=== PATIENT | female | born 1950 | race Caucasian/White ===

== ENCOUNTER 2020-03-13 06:06 | Day surgery (SDC) | payer MEDICARE ==
[2020-03-09 15:43] VITALS: BMI 32.3
[~2020-03-13 06:06] MED LIST: ALPRAZolam 0.25 MG TAB PO PRN; ALPRAZolam 0.5 MG TAB PO PRN; ASPIRIN 325 MG TAB PO STA; ATORVASTATIN 80 MG TAB PO STA; HEPARIN SODIUM,PORCINE 10,000 UNIT in SODIUM CHLORIDE 0.9% 1,000 ML IRRIGATION PRN; HEPARIN SODIUM,PORCINE 2,500 UNIT in SODIUM CHLORIDE 0.9% 250 ML IRRIGATION PRN; NITROGLYCERIN SL TABS 0.4 MG TAB SUBLINGUAL PRN; SODIUM CHLORIDE 0.9% 1,000 ML in EMPTY BAG 1 BAG IV ONE
[2020-03-13 06:39] LABS: Basophils # (A) 0.1 k/uL (0-0.2); Basophils % (A) 1 %; Eosinophils # (A) 0.5 k/uL (0-0.7); Eosinophils % (A) 4 %; HCT 38.4 % (34.0-46.0); HGB 12.1 gm/dL (11.4-16.0); Hypochromasia Moderate; Lymphocytes # (A) 1.9 k/uL (1.0-4.8); Lymphocytes % (A) 18 %; MCH 26.9 pg (25.0-35.0); MCHC 31.6 g/dL (31.0-37.0); MCV 84.9 fL (80.0-100.0); Mean Platelet Volume 7.2; Monocytes # (A) 0.6 k/uL (0-1.0); Monocytes % (A) 6 %; Neutrophils # (A) 7.3 k/uL (1.3-7.7); Neutrophils % (A) 70 %; Platelet Count 326 k/uL (150-450); RBC 4.52 m/uL (3.80-5.40); RDW 14.6 % (11.5-15.5); WBC 10.5 k/uL (3.8-10.6)
[2020-03-13 06:45] VITALS: TEMP 97.8
[2020-03-13] MEDS ORDERED: fentaNYL (PF) 50 MCG/ML 2 ML AMP ONE (07:15)
[2020-03-13] MEDS: BENZOCAINE SPRAY 1 CAN MUCOUS MEM ONE ×2 (07:25→07:29)
[2020-03-13] MEDS: MIDAZOLAM 2 MG/2 ML VIAL IVP ONE ×2 (07:30→07:32)
[2020-03-13] MEDS: fentaNYL (PF) 50 MCG/ML 2 ML AMP IVP ONE ×2 (07:30→07:32)
[2020-03-13] MEDS ORDERED: MIDAZOLAM 2 MG/2 ML VIAL IVP ONE (07:46)
--- NOTE | 2020-03-13 08:30 | P.TEE ---
Description of Procedure(s): Procedure performed: Transesophageal Echocardiogram with color flow doppler, pulsed wave doppler and continuous wave doppler, moderate conscious sedation Moderate conscious sedation: Moderate conscious sedation was supplied with direct supervision of myself using Versed and Fentanyl. Complications: none Indications: Moderate to severe mitral regurgitation History: Patient is a pleasant 69-year-old female with history of PAD status post lower extremity bypass, persistent atrial fibrillation, hypertension, hyperlipidemia, recent stroke, recent covid 19 infection who presents for EZEKIEL for further workup of mitral regurgitation. Patient did have recent hospitalizations mainly for Covid 19 but also had lower extremity edema and was treated for heart failure as well with outpatient echo showing what appeared to be severe mitral regurgitation, mildly reduced ejection fraction 50-55% and moderate to severe tricuspid regurgitation. Due to concern of severe symptomatic mitral regurgitation, EZEKIEL and possible heart catheterization were recommended. PROCEDURE: After the risks, benefits and alternatives of the above mentioned procedure was explained in detail with the patient, informed consent was obtained. Patient was brought to the lab in a fasting state. Patient was given IV Versed and Fentanyl for sedation. The throat was sprayed with Hurricane to anesthetize the throat. A lubricated Omni probe was then introduced into the esophagus and stomach and multiple views were obtained. 2D echo with color flow doppler, pulsed wave doppler and continuous wave doppler was utilized. Agitated saline bubbles were injected to assess for any intra-atrial shunt. The probe was then removed. Patient tolerated the procedure well. Patient was transferred to the post procedure area in stable and satisfactory condition. FINDINGS: 1. The aortic valve is tricuspid with mild sclerosis. There is no significant aortic stenosis or aortic regurgitation. 2. The mitral valve is moderate to severely calcified, mainly of the posterior leaflet with mild to moderate posterior leaflet tethering. There is moderate central mitral regurgitation. There is only a systolic blunting of the left upper pulmonary vein and right upper pulmonary vein without any systolic flow reversal. The PISA calculated EROA 25mm2 consistent with moderate mitral regurgitation. 3. Tricuspid valve appears to be normal with moderate tricuspid regurgitation. 4. The interatrial septum is intact. No evidence of PFO. 5. Left atrial appendage has a thrombus. 6. Left ventricular size appears to be normal. Ejection fraction is 50-55% without wall motion abnormalities. 7. Left atrium is severely dilated.
[2020-03-13 08:32] VITALS: RESP 16
[2020-03-13 08:36] VITALS: PULSE 65
[2020-03-13 09:13] VITALS: BP 119/56
== END 2020-03-13 09:05 | disposition home or self-care (01) ==
LOC: CATHCVL 06:06
PROVIDERS: ATTEND Internal Medicine
DX: I08.1 Rheumatic disorders of both mitral and tricuspid valves (principal); I48.19 Other persistent atrial fibrillation; I73.9 Peripheral vascular disease, unspecified; I69.354 Hemiplegia and hemiparesis following cerebral infarction affecting left non-dominant side; I11.0 Hypertensive heart disease with heart failure; E78.5 Hyperlipidemia, unspecified; L40.9 Psoriasis, unspecified; I50.32 Chronic diastolic (congestive) heart failure; I77.89 Other specified disorders of arteries and arterioles; R04.0 Epistaxis; Z98.62 Peripheral vascular angioplasty status; Z89.429 Acquired absence of other toe(s), unspecified side; Z87.891 Personal history of nicotine dependence; Z86.16 Personal history of COVID-19; Z79.899 Other long term (current) drug therapy; Z79.01 Long term (current) use of anticoagulants; Z79.82 Long term (current) use of aspirin; Z79.02 Long term (current) use of antithrombotics/antiplatelets; Z82.49 Family history of ischemic heart disease and other diseases of the circulatory system
CPT/HCPCS: 93312; 93320; 93325; 85025; J2250; J3010

== ENCOUNTER → 2020-04-03 | Day surgery (SDC) | payer MEDICARE ==
[2020-03-29 09:07] VITALS: BMI 32.0
[~2020-04-03] MED LIST changes: -ALPRAZolam 0.5 MG TAB PO PRN; +ASPIRIN 325 MG TAB PO PRN; -ASPIRIN 325 MG TAB PO STA; -ATORVASTATIN 80 MG TAB PO STA; -NITROGLYCERIN SL TABS 0.4 MG TAB SUBLINGUAL PRN; +ZOLPIDEM 5 MG TAB PO PRN
[2020-04-03 08:24] VITALS: BP 172/77; PULSE 62; RESP 18; TEMP 97
[2020-04-03 09:07] LABS: Calcium 9.4 mg/dL (8.4-10.2); Potassium 4.4 mmol/L (3.5-5.1)
== END ==
LOC: CATHCVL 07:49
PROVIDERS: ATTEND Internal Medicine
DX: I70.213 Atherosclerosis of native arteries of extremities with intermittent claudication, bilateral legs (principal); Z53.8 Procedure and treatment not carried out for other reasons
CPT/HCPCS: 80048

== ENCOUNTER 2020-04-07 06:10 | Day surgery (SDC) | payer MEDICARE ==
[2020-04-04 09:01] VITALS: BMI 33.6
[~2020-04-07 06:10] MED LIST changes: -ALPRAZolam 0.25 MG TAB PO PRN; -HEPARIN SODIUM,PORCINE 10,000 UNIT in SODIUM CHLORIDE 0.9% 1,000 ML IRRIGATION PRN; -HEPARIN SODIUM,PORCINE 2,500 UNIT in SODIUM CHLORIDE 0.9% 250 ML IRRIGATION PRN; -ZOLPIDEM 5 MG TAB PO PRN
[2020-04-07] MEDS ORDERED: SODIUM CHLORIDE 0.9% 1,000 ML IV ONE (06:30)
[2020-04-07 06:45] VITALS: RESP 18; TEMP 97.6
[2020-04-07] MEDS ORDERED: fentaNYL (PF) 50 MCG/ML 2 ML AMP IVP ONE (07:41)
[2020-04-07] MEDS ORDERED: MIDAZOLAM 2 MG/2 ML VIAL IVP ONE (07:41)
[2020-04-07] MEDS ORDERED: LIDOCAINE 1% INJ 10MG/ML (20 ML MDV) SQ ONE (07:41)
[2020-04-07] MEDS ORDERED: VERAPAMIL SYRINGE (5 MG/10 ML) INTRAARTER ONE ×2 (07:43→08:03)
[2020-04-07] MEDS ORDERED: HEPARIN SODIUM 1,000 UN/ML (10ML VL) IV ONE (08:01)
[2020-04-07] MEDS ORDERED: IOPAMIDOL-370 100ML BTL INJ ONE (08:03)
[2020-04-07] MEDS ORDERED: IOPAMIDOL-250 50ML BTL INTRAARTER ONE (08:03)
[2020-04-07] MEDS ORDERED: RX INFO: IV CONTRAST WAS GIVEN 1 EACH MISC MISCELLANE PRN (08:46)
--- NOTE | 2020-04-07 09:13 | P.PCN ---
Description of Procedure: PROCEDURES PERFORMED: Abdominal angiography with bilateral runoff INDICATION: Bilateral Gary Class 3 claudication, abnormal LE ultrasound HISTORY: Patient is a pleasant 69-year-old female with history of PAD status post reported right bypass and toe amputation, prior tobacco abuse, hypertension, psoriasis rash, mitral regurgitation, recently diagnosed Afib, recently diagnosed CVA with left-sided weakness, left atrial appendage thrombus and prior hospitalizations for heart failure and Covid 19. She has been having left thigh claudication symptoms with walking approximately 100 yards which has been fairly stable over the last few years. She had similar right thigh claudication prior to intervention on her right side for PAD which has completely resolved since that surgery reportedly approximately 2-3 years ago. An ultrasound showed on the right side what appeared to be a common femoral artery stent with only trickle flow however additionally an echo lucency surrounding the right common femoral artery stent and could not exclude a pseudoaneurysm or aneurysm. Remainder of mild to moderate disease on the right. On the left there was elevated velocities of the left common femoral artery greater than 3 m/s along with reported monophasic waveforms of the external iliac artery concerning for more proximal stenosis. Given her life limiting claudication patient desired further workup with an abdominal angiogram and runoff. CONSENT: I have discussed the risks, benefits and alternative therapies for the above-mentioned procedure and for both sedation/analgesia as well as necessary blood product administration, if indicated, as they pertain to this patient. The patient has indicated understanding and acceptance of the risks and procedures discussed. PROCEDURE: After the risks, benefits and alternatives of the above mentioned procedure explained in detail with the patient, informed consent was obtained. Patient was taken to the catheterization lab and prepped and draped in usual fashion. 1% lidocaine was used to anesthetize the right radial area. A 6- Croatian sheath was placed in the right radial artery using modified Seldinger technique. A 6-Croatian pigtail catheter was inserted to the abdominal aorta and DSA imaging was obtained. Due to concern of a more proximal iliac stenosis by ultrasound, dedicated iliac imaging was performed. The 6Fr pigtail catheter was also advanced into the external iliac and pullback was performed with no gradient noted. The catheter was then removed. A TR band was placed and the sheath was removed with hemostasis achieved. Patient tolerated the diagnostic portion well. The patient tolerated the procedure well. Patient was transported back to the post catheterization holding area in stable condition. Conscious Sedation: Patient was monitored under the direct supervision of vision of myself for conscious sedation using Versed and fentanyl for a total duration of 23 minutes Abdominal aorta: The abdominal aorta has mild calcifcation without significant stenosis. There is no dissection or aneurysm. Renal arteries were not imaged. Right lower extremity: Right common iliac artery: No significant stenosis. Right external iliac artery: There is a patent stent without significant stenosis. Right internal iliac artery: Proximal 80% stenosis. Right common femoral artery: There is an aneurysm vs pseudoaneurysm extending from the common femoral into the SFA measuring approximately 2cm. Right profunda: There is no significant stenosis. Right SFA: There are tandem proximal stents which are patent with mild instent stenosis. Right popliteal artery: There is no significant stenosis. Right tibioperoneal trunk: There is no significant stenosis. Right anterior tibial artery: There is no significant stenosis. Right porterior tibial artery: There is no significant stenosis. Right peroneal artery: There is no significant stenosis. Left lower extremity: Left common iliac artery: Mild 30-40% proximal stenosis Left external iliac artery: No significant stenosis. Left internal iliac artery: No significant stenosis. Left common femoral artery: There is a short 100% heavily calcified common femoral artery stenosis, followed by another 90% heavily calcified stenosis. Left profunda: There is no significant stenosis. Left SFA: There is proximal SFA 80% heavily calcified stenosis and a mid to distal tandem 80% stenoses. Left popliteal artery: There is no significant stenosis. Left tibioperoneal trunk: There is no significant stenosis. Left anterior tibial artery: There is no significant stenosis. Left porterior tibial artery: There is no significant stenosis. Left peroneal artery: There is no significant stenosis. FINAL IMPRESSION: 1. Peripheral arterial disease as described above including short segment 100%, 90% heavily calcified left [employer], 80% left SFA. 2. Left anterior thigh claudication 3. 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 PLAN: 1. Aggressive risk factor modification per most recent ACC/AHA guidelines. 2. Given heavily calcified common femoral disease, patient would likely benefit from endarterectomy if intervention considered. Will have patient be evaluated by vascular surgery and will also get their opinion on right common femoral aneurysm vs pseudoaneurysm.
--- NOTE | 2020-04-07 09:47 | IR ---
Fluoroscopy HISTORY: Pain in leg 3.4 minutes fluoroscopy time supplied to the referring clinician. 222 intraoperative C-arm images do cument the procedure. See dictated report from cardiology.
[2020-04-07 12:01] VITALS: BP 124/59; PULSE 61
== END 2020-04-07 11:58 | disposition home or self-care (01) ==
LOC: CATHCVL 06:10
PROVIDERS: ATTEND Internal Medicine
DX: I70.212 Atherosclerosis of native arteries of extremities with intermittent claudication, left leg (principal); I72.4 Aneurysm of artery of lower extremity; Z89.421 Acquired absence of other right toe(s); Z98.890 Other specified postprocedural states; I11.0 Hypertensive heart disease with heart failure; Z86.16 Personal history of COVID-19; I50.9 Heart failure, unspecified; E78.5 Hyperlipidemia, unspecified; I08.1 Rheumatic disorders of both mitral and tricuspid valves; Z87.891 Personal history of nicotine dependence; L40.9 Psoriasis, unspecified; I48.91 Unspecified atrial fibrillation; I69.354 Hemiplegia and hemiparesis following cerebral infarction affecting left non-dominant side; Z82.49 Family history of ischemic heart disease and other diseases of the circulatory system; Z79.01 Long term (current) use of anticoagulants; Z79.899 Other long term (current) drug therapy
CPT/HCPCS: 36246; 75625; 75716; C1769 ×3; C1894; J2250; J2001; J3010; J1644; Q9966; Q9967

== ENCOUNTER → 2020-06-05 | Outpatient (CLI) | payer MEDICARE, OTHER ==
[2020-06-05 11:39] LABS: Basophils % (A) 0 %; Eosinophils # (A) 0.3 k/uL (0-0.7); Eosinophils % (A) 5 %; HCT 35.6 % (34.0-46.0); HGB 11.1 gm/dL (11.4-16.0); Hypochromasia Moderate; Lymphocytes # (A) 1.2 k/uL (1.0-4.8); Lymphocytes % (A) 17 %; MCH 27.1 pg (25.0-35.0); MCHC 31.2 g/dL (31.0-37.0); MCV 86.8 fL (80.0-100.0); Mean Platelet Volume 7.1; Monocytes # (A) 0.4 k/uL (0-1.0); Monocytes % (A) 6 %; Neutrophils # (A) 4.9 k/uL (1.3-7.7); Neutrophils % (A) 71 %; Platelet Count 298 k/uL (150-450); RDW 15.7 % (11.5-15.5)
== END | disposition home or self-care (01) ==
LOC: LABPAT 10:41
PROVIDERS: ATTEND Surgery
DX: I48.91 Unspecified atrial fibrillation (principal); R94.31 Abnormal electrocardiogram [ECG] [EKG]
CPT/HCPCS: 36415; 84132; 85025; 86850; 86900; 86901; 93005

== ENCOUNTER 2020-06-12 08:10 | Day surgery (SDC) | payer MEDICARE, OTHER ==
[2020-06-02 15:30] VITALS: BMI 33.6
[~2020-06-12 08:10] MED LIST changes: -ASPIRIN 325 MG TAB PO PRN; +LIDOCAINE 1% (10MG/ML) FOR IV START INTRADERMA PRN; +MIDAZOLAM 2 MG/2 ML VIAL IV PRN; -SODIUM CHLORIDE 0.9% 1,000 ML in EMPTY BAG 1 BAG IV ONE; +fentaNYL (PF) 50 MCG/ML 2 ML AMP IVP PRN
[2020-06-12] MEDS: LACTATED RINGERS 1,000 ML IV SCH ×3 (09:19→10:01)
[2020-06-12] MEDS ORDERED: LIDOCAINE 1% INJ 10MG/ML (20 ML MDV) ONE (09:40)
[2020-06-12] MEDS ORDERED: HEPARIN SODIUM,PORCINE 10,000 UNIT/ML 1 ML VIAL ONE (09:40)
[2020-06-12] MEDS ORDERED: MIDAZOLAM 2 MG/2 ML VIAL ONE (09:40)
[2020-06-12] MEDS ORDERED: ePHEDrine SULFATE/0.9% NACL/PF 50 MG/5 ML SYRINGE IV ONE (09:40)
[2020-06-12] MEDS ORDERED: fentaNYL (PF) 50 MCG/ML 2 ML AMP ONE (09:40)
[2020-06-12] MEDS ORDERED: HYDROmorphone (PF) 1 MG/ML ONE (09:40)
[2020-06-12] MEDS ORDERED: ROCURONIUM 10 MG/ML (5 ML VIAL) IV ONE (09:40)
[2020-06-12] MEDS ORDERED: GLYCOPYRROLATE 0.2 MG/ML 2 ML VIAL ONE (09:40)
[2020-06-12] MEDS ORDERED: NEOSTIGMINE 1 MG/ML 10 ML VIAL ONE (09:40)
[2020-06-12] MEDS ORDERED: PROPOFOL 10 MG/ML 20 ML VIAL IV ONE (09:40)
[2020-06-12] MEDS: DEXAMETHASONE SOD PHOSPHATE 4 MG/ML 1 ML VIAL IV ONE ×2 (10:00→16:53)
[2020-06-12] MEDS: ONDANSETRON 4 MG/2 ML VIAL IVP ONE ×2 (10:00→16:53)
--- NOTE | 2020-06-12 10:03 | P.ANPRN ---
Procedure Note - Anesthesia - Invasive Line Right Arterial Line Time Out Performed: Yes ([id number]) Date of Procedure: 06/12/20 Time of Procedure: 09:56 Location of Patient: PreOp Preparation: Sterile Prep, Sterile Dressing Arterial Line Location: Radial Ultrasound Used: Yes Purpose - Visualization and Identification of Vasculature: Yes Narrative: Central line placement per sterile protocol utilized.
[2020-06-12] MEDS ORDERED: LACTATED RINGERS 1,000 ML IV ONE (13:01)
--- NOTE | 2020-06-12 15:00 | P.OP ---
Description of Procedure: Date: 06/12/2020 Preoperative diagnosis: Left common Ileo--femoral artery occlusive disease, left lower extremity disabling claudication with Gary classification 3 Postoperative diagnosis: Same Procedure: Left external iliac, common femoral and superficial femoral artery endarterectomy with patch angioplasty. Surgeon: Tim Patterson DO Anesthesia: General endotracheal Estimated blood loss: 100 cc Complications: None Condition: Stable Findings: Dense atherosclerotic calcification involving the external iliac, common femoral, superficial femoral and profundus femoris arteries Indication for procedure: 69-year-old female with history of lower extremity claudication and pain in her left leg which she states she isevere pain in her left calf and thigh. She underwent aortogram with runoff which demonstrated severe Calcification occlusive disease involving the External iliac, common femoral and superficial femoral arteries. She presents today for endarterectomy and patch angioplasty. Operative narrative: After written and informed consent was obtained from the patient and all risks, benefits, and complications were discussed the patient was brought to the Operative suite and laid in a Supine position. The area of the Left groin was prepped and draped in the usual fashion. Timeout was performed in usual fashion. Antibiotics were administered prior to incision. A vertical incision was then created with a 10 blade scalpel and dissection was carried down to the femoral sheath which was incised and the common femoral, superficial femoral and profundus femoris arteries were dissected free in a circumferential manner. All vessels were then controlled with vessel loops. The artery was densely calcified throughout a 9 cm segment. Once controlled patient was administered heparin and followed with serial ACTs. After control was then obtained proximally and distally and arteriotomy was created with an 11 blade scalpel. The arteriotomy was extended with Pott Bolanos scissors. Endarterectomy was then performed from the external iliac artery down to the superficial femoral artery and eversion technique was used for the profundus femoris artery. Once plaque was removed the area was cleansed removing all free debris. Distal control was released revealing good backbleeding from the superficial femoral artery And from the profundus femoris artery. Good pulsatile blood flow was visualized from the proximal aspect. Patch angioplasty was then performed with bovine pericardial 9 cm patch and 6-0 Prolene suture in a running fashion. Prior to last sutures being secured the patch was de-aired and flow was diverted into the profundus femoris artery. All control was then released and final suture was placed. Good pulsatile flow was noted through the patch, profundus femoris artery and superficial femoral artery. The area was then copiously irrigated and hemostasis was assured with Gelfoam and thrombin. Once hemostatic the incision was closed in a multilayer fashion with 3-0 Vicryl for the femoral sheath, 3-0 Vicryl for the subcutaneous tissue and 4-0 Monocryl for the skin. The skin was cleansed and a Prevena incisional VAC was placed. The patient tolerated the procedure well and was sent to PACU for recovery.
[2020-06-12] MEDS ORDERED: HYDROcodone/APAP 5-325MG 1 EACH TAB PO PRN (15:04)
[2020-06-12] MEDS ORDERED: MORPHINE SULFATE 2 MG/ML SYRINGE IVP PRN (15:07)
[2020-06-12] MEDS: SODIUM CHLORIDE 0.9% 1,000 ML IV SCH (19:14)
[2020-06-12] MEDS: METOPROLOL TARTRATE 50 MG TAB PO SCH (20:22)
[2020-06-12] MEDS: DILTIAZEM ORAL 30 MG TAB PO SCH (20:23)
--- NOTE | 2020-06-12 20:51 | P.CONS ---
History of Present Illness - Reason for Consult Consult date: 06/12/20 Medical management Requesting physician: Tim Patterson - Chief Complaint Peripheral arterial intervention - History of Present Illness Consultation: This is a pleasant 69-year-old patient who follows with Dr. Sim Leonard. Patient has undergone left external iliac common femoral and superficial femoral artery endarterectomy with patch angioplasty. This was done on the right leg some time ago. Patient had been having what appears to be claudication walking short distances. Has any further intervention. Chronic stable medical conditions include atrial fibrillation, GERD, hypertension, hyperlipidemia, peripheral arterial disease. No nausea vomiting. No chest pain. Breathing is stable. Review of systems: GEN.: Tired EYES: None HEENT: None NECK: None RESPIRATORY: None CARDIOVASCULAR: None GASTROINTESTINAL: None GENITOURINARY: None MUSCULOSKELETAL: As above LYMPHATICS: None HEMATOLOGICAL: None PSYCHIATRY: None NEUROLOGICAL: None Past medical history to include: Atrial fibrillation, TIA, GERD, hypertension, hyperlipidemia, peripheral arterial disease, Social history: . Lives alone. Occasionally may use a walker. Patient smoked for close to 50 years about a pack a day stopped in 2019. No alcohol. Family history: Reviewed, noncontributory to presentation Physical examination: VITAL SIGNS: 97.4, 72, 18, 116/56, 100% on 4 L GENERAL: BMI 35.1, laying in bed, not in distress. EYES: Pupils equal. Conjunctiva normal. HEENT: External appearance of nose and ears normal, oral cavity grossly normal. NECK: JVD not raised; masses not palpable. HEART: First and second heart sounds are normal; no edema. LUNGS: Respiratory rate normal; clear to auscultation. ABDOMEN: Soft, nontender, liver spleen not palpable, no masses palpable. PSYCH: Alert and oriented x3; mood and affect normal. NEUROLOGICAL: Cranial nerves grossly intact; no facial asymmetry, power and sensation grossly intact. LYMPHATICS: No lymph nodes palpable in the axilla and neck INVESTIGATIONS, reviewed in the clinical context: Coronavirus [PCF]: Not detected Previous labs WBC 7 hemoglobin 11.1 platelets 298 potassium 4.4 creatinine 0.89 Assessment and plan: -Left external iliac common femoral and superficial femoral artery, endarterectomy with patch angioplasty -Peripheral artery disease with claudication Antiplatelet agent and Lipitor -: Obesity BMI 35.1 Weight loss measures and okay with Dr. Cuppari -GERD Continue with Protonix -Hyperlipidemia Continue with Crestor -Essential hypertension -Continue with Cardizem, Lopressor -Persistent atrial fibrillation Resume Dr. Patterson Care was discussed with the patient question also. We'll follow along Thank you Dr. Patterson Past Medical History Past Medical History: Atrial Fibrillation, CVA/TIA, GERD/Reflux, Hyperlipidemia, Hypertension, Vascular Disorder Additional Past Medical History / Comment(s): TIA -no residual effects,"STATES SHE HAS A BLOOD CLOT IN HER HEART IN MAR 2020" History of Any Multi-Drug Resistant Organisms: None Reported Past Surgical History: Heart Catheterization Additional Past Surgical History / Comment(s): vascular surg. right leg to "open up circulation" & third toe removed, EZEKIEL Past Anesthesia/Blood Transfusion Reactions: Motion Sickness Past Psychological History: No Psychological Hx Reported Smoking Status: Former smoker Past Alcohol Use History: None Reported Additional Past Alcohol Use History / Comment(s): quit smoking 2018, smoked since age of 16, SMOKED 1ppd Past Drug Use History: None Reported - Past Family History Mother Family Medical History: No Reported History Medications and Allergies Home Medications Medication Instructions Recorded Confirmed Type Cholecalciferol [Vitamin D3 (25 50 mcg PO DAILY 03/09/20 06/12/20 History Mcg = 1000 Iu)] Ferrous Sulfate [Feosol] 325 mg PO DAILY 03/09/20 06/12/20 History Furosemide [Lasix] 20 mg PO DAILY 03/09/20 06/12/20 History Metoprolol Tartrate [Lopressor] 50 mg PO BID 03/09/20 06/12/20 History Pantoprazole Sodium [Protonix] 40 mg PO DAILY 03/09/20 06/12/20 History Potassium Chloride [K-Tab ER] 10 meq PO DAILY 03/09/20 06/12/20 History Rosuvastatin Calcium [Crestor] 20 mg PO DAILY 03/09/20 06/12/20 History dilTIAZem HCL [Diltiazem HCl] 30 mg PO BID 03/09/20 06/12/20 History Dabigatran [Pradaxa] 150 mg PO BID 03/29/20 06/12/20 History Allergies Allergy/AdvReac Type Severity Reaction Status Date / Time No Known Allergies Allergy Verified 06/12/20 09:02 Physical Exam Vitals: Vital Signs Temp Pulse Resp BP BP Pulse Ox 06/12/20 19:36 97.4 F L 72 18 116/56 100 06/12/20 17:10 63 16 123/60 99 06/12/20 16:55 60 16 116/56 99 06/12/20 16:40 60 16 114/53 98 06/12/20 16:25 63 16 135/58 99 06/12/20 16:10 97.2 F L 61 16 123/60 100 06/12/20 15:18 65 16 128/63 100 06/12/20 15:03 64 16 132/64 129/68 99 06/12/20 14:48 63 16 132/64 100 06/12/20 14:33 68 16 153/66 98 06/12/20 14:18 73 16 149/69 99 06/12/20 14:03 60 16 145/61 99 06/12/20 13:48 62 16 144/78 99 06/12/20 13:33 98.3 F 71 12 138/60 96 06/12/20 08:57 98.0 F 69 18 125/58 128/57 99 Intake and Output 06/12/20 06/12/20 06/12/20 06:59 14:59 22:59 Intake Total 1450 200 Output Total 240 200 Balance 1210 0 Intake: IV 1450 200 Output: Urine 190 200 Estimated Blood Loss 50 Other: Weight 87.1 kg
[2020-06-13] MEDS: SODIUM CHLORIDE 0.9% 1,000 ML IV SCH (06:18)
[2020-06-13] MEDS ORDERED: PANTOPRAZOLE 40 MG TABLET PO SCH (07:30)
[2020-06-13 08:33] LABS: HCT 30.3 % (34.0-46.0); HGB 9.8 gm/dL (11.4-16.0); Hypochromasia Moderate; MCH 27.9 pg (25.0-35.0); MCHC 32.3 g/dL (31.0-37.0); MCV 86.4 fL (80.0-100.0); Mean Platelet Volume 7.2; Platelet Count 247 k/uL (150-450); RDW 15.5 % (11.5-15.5); WBC 12.4 k/uL (3.8-10.6)
[2020-06-13 08:50] LABS: Calcium 8.6 mg/dL (8.4-10.2); Potassium 4.9 mmol/L (3.5-5.1)
[2020-06-13] MEDS ORDERED: ATORVASTATIN 40 MG TAB PO SCH (09:00)
[2020-06-13] MEDS ORDERED: DABIGATRAN 150 MG CAP PO SCH (09:00)
[2020-06-13] MEDS ORDERED: CHOLECALCIFEROL 25 MCG (1000 IU) TABLET PO SCH (09:00)
[2020-06-13] MEDS ORDERED: FERROUS SULFATE 325 MG TAB PO SCH (09:00)
[2020-06-13] MEDS ORDERED: BENZOCAINE/MENTHOL LOZENG 1 EACH LOZENGE MUCOUS MEM PRN (09:19)
[2020-06-13] MEDS: DILTIAZEM ORAL 30 MG TAB PO SCH (09:20)
[2020-06-13] MEDS: METOPROLOL TARTRATE 50 MG TAB PO SCH (09:20)
[2020-06-13 12:27] VITALS: BP 116/59; PULSE 74; RESP 15; TEMP 97.8
--- NOTE | 2020-06-13 12:32 | P.DS ---
Providers Date of admission: 06/12/20 08:10 Attending physician: Tim Patterson DO Consults: 06/12/20 13:41 Consult Physician Routine Consulting Provider: Jayant Carroll Consult Reason/Comments: medical management Do you want consulting provider notified?: Yes Primary care physician: Sim Aisha [facility] Course: Is a pleasant 69-year-old female with a history of lower extremity claudication and pain in her left leg for which he states she has been in severe pain in her left calf and thigh. She has history of peripheral arterial disease with previous right femoral endarterectomy with iliac and superficial arterial angioplasty and stenting in the past along with a total amputation in 2019. Yesterday she presented to the hospital for an outpatient procedure and is postop day #1 for left external iliac, common femoral and superficial femoral endarterectomy with patch angioplasty. Assessment: She was seen and examined sitting up in bed. She is postop day #1 for left external iliac, common femoral and superficial femoral endarterectomy with patch angioplasty. She states she is in no pain, she is moving bilateral lower extremities without any difficulty. She denies any shortness of breath or chest pain. She denies any signs of bleeding. Miramontes catheter has been discontinued. Physical therapy will be ordered to evaluate patient strength and ambulation. Exam: General appearance: The patient is alert, oriented, in no acute distress. HET: Head is normocephalic and atraumatic. Neck: Supple without lymphadenopathy. Trachea midline. Heart: S1 S2. Regular rate and rhythm. Lungs: Clear to auscultation. Abdomen: Soft, nontender, nondistended with bowel sounds. Extremities: Normal skin color and turgor. No pedal edema. Warm to touch bi laterally, good capillary refill. Left groin with Prevena dressing clean dry and intact. Positive biphasic popliteal and posterior tibialis Doppler signal. Neurological: No focal deficits. Strength and sensation are grossly intact. The impression and plan of care has been dictated as directed. Dr. Patterson I performed a history and examination of this patient, discussed the same with the dictator. I agree with the dictator's note ,documented as a scribe. Any additional findings or plans will be noted. Procedures: Left external iliac, common femoral and superficial femoral endarterectomy with patch angioplasty Patient Condition at Discharge: Good Plan - Discharge Summary Discharge Rx Participant: No New Discharge Prescriptions: Continue Cholecalciferol [Vitamin D3 (25 Mcg = 1000 Iu)] 50 mcg PO DAILY Rosuvastatin Calcium [Crestor] 20 mg PO DAILY Furosemide [Lasix] 20 mg PO DAILY Ferrous Sulfate [Iron (65 MG Elemental)] 325 mg PO DAILY Metoprolol Tartrate [Lopressor] 50 mg PO BID dilTIAZem HCL [Diltiazem HCl] 30 mg PO BID Potassium Chloride [K-Tab ER] 10 meq PO DAILY Pantoprazole Sodium [Protonix] 40 mg PO DAILY Dabigatran [Pradaxa] 150 mg PO BID Discharge Medication List Cholecalciferol [Vitamin D3 (25 Mcg = 1000 Iu)] 50 mcg PO DAILY 03/09/20 [History] Ferrous Sulfate [Iron (65 MG Elemental)] 325 mg PO DAILY 03/09/20 [History] Furosemide [Lasix] 20 mg PO DAILY 03/09/20 [History] Metoprolol Tartrate [Lopressor] 50 mg PO BID 03/09/20 [History] Pantoprazole Sodium [Protonix] 40 mg PO DAILY 03/09/20 [History] Potassium Chloride [K-Tab ER] 10 meq PO DAILY 03/09/20 [History] Rosuvastatin Calcium [Crestor] 20 mg PO DAILY 03/09/20 [History] dilTIAZem HCL [Diltiazem HCl] 30 mg PO BID 03/09/20 [History] Dabigatran [Pradaxa] 150 mg PO BID 03/29/20 [History] Follow up Appointment(s)/Referral(s): Tim Patterson DO [STAFF PHYSICIAN] - 1 Week Activity/Diet/Wound Care/Special Instructions[phone] Sponge bath until dressing removed. Keep dressing intact for 6 more days then may remove and discard. No heavy lifting or strenuous activity. Discharge Disposition: HOME WITH HOME HEALTH SERVICES
--- NOTE | 2020-06-13 13:07 | P.PN ---
Progress Note - Text Progress Note Date: 06/13/20 - Chief Complaint Peripheral arterial intervention Consultation: This is a pleasant 69-year-old patient who follows with Dr. Sim Leonard. Patient has undergone left external iliac common femoral and superficial femoral artery endarterectomy with patch angioplasty. This was done on the right leg some time ago. Patient had been having what appears to be claudication walking short distances. Has any further intervention. Chronic stable medical conditions include atrial fibrillation, GERD, hypertension, hyperlipidemia, peripheral arterial disease. No nausea vomiting. No chest pain. Breathing is stable. Today: Sitting up in a chair. Eating. No pain. No nausea vomiting. Feeling well. Review of systems: Was done for constitutional, cardiovascular, GI, pulmonary. relevant finding as above Active Medications Hydrocodone Bitart/Acetaminophen (Hydrocodone/Apap 5-325mg 1 Each Tab) 1 each PO Q4HR PRN PRN Reason: Pain Atorvastatin Calcium (Atorvastatin 40 Mg Tab) 40 mg PO DAILY [facility] Last Admin: 06/13/20 09:20 Dose: 40 mg Documented by: Benzocaine/Menthol (Benzocaine/Menthol Lozeng 1 Each Lozenge) 1 each MUCOUS MEM Q4HR PRN PRN Reason: Sore Throat Last Admin: 06/13/20 12:27 Dose: 1 each Documented by: Cholecalciferol (Cholecalciferol 25 Mcg (1000 Iu) Tablet) 50 mcg PO DAILY [facility] Last Admin: 06/13/20 09:20 Dose: 50 mcg Documented by: Dabigatran (Dabigatran 150 Mg Cap) 150 mg PO BID [facility] Last Admin: 06/13/20 09:20 Dose: 150 mg Documented by: Diltiazem HCl (Diltiazem Oral 30 Mg Tab) 30 mg PO BID [facility] Last Admin: 06/13/20 09:20 Dose: 30 mg Documented by: Ferrous Sulfate (Ferrous Sulfate 325 Mg Tab) 325 mg PO DAILY [facility] Last Admin: 06/13/20 09:20 Dose: 325 mg Documented by: Lactated Ringer's (Lactated Ringers) 1,000 mls @ 20 mls/hr IV .Q24H [facility] Last Admin: 06/12/20 10:01 Dose: 100 mls Documented by: Sodium Chloride (Saline 0.9%) 1,000 mls @ 75 mls/hr IV .[id number] [facility] Last Admin: 06/13/20 06:18 Dose: 75 mls/hr Documented by: Lidocaine HCl (Lidocaine 1% (10mg/Ml) For Iv Start) 0.1 ml INTRADERMA PER PROTOCOL PRN PRN Reason: IV Start Last Admin: 06/12/20 09:45 Dose: 0.1 ml Documented by: Metoprolol Tartrate (Metoprolol Tartrate 50 Mg Tab) 50 mg PO BID [facility] Last Admin: 06/13/20 09:20 Dose: 50 mg Documented by: Morphine Sulfate (Morphine Sulfate 2 Mg/Ml Syringe) 2 mg IVP Q4H PRN PRN Reason: Pain/Discomfort Pantoprazole Sodium (Pantoprazole 40 Mg Tablet) 40 mg PO DAILY@0730 [facility] Last Admin: 06/13/20 06:17 Dose: 40 mg Documented by: Past medical history to include: Atrial fibrillation, TIA, GERD, hypertension, hyperlipidemia, peripheral arterial disease, Social history: . Lives alone. Occasionally may use a walker. Patient smoked for close to 50 years about a pack a day stopped in 2018. No alcohol. Family history: Reviewed, noncontributory to presentation Physical examination: VITAL SIGNS: 97.6, 77, 16, 111/62, 100% on 2 L GENERAL: Sitting on a chair, eating EYES: Pupils equal. Conjunctiva normal. NECK: JVD not raised; masses not palpable. HEART: First and second heart sounds are normal; no edema. LUNGS: Respiratory rate normal; clear to auscultation. ABDOMEN: Soft, nontender, liver spleen not palpable, no masses palpable. PSYCH: Alert and oriented x3; mood and affect normal. NEUROLOGICAL: Cranial nerves grossly intact; no facial asymmetry, power and sensation grossly intact. INVESTIGATIONS, reviewed in the clinical context: June 13: WBC 12.4 hemoglobin 9.8 platelets 247 potassium 4.9 creatinine 0.82 Coronavirus [PCF]: Not detected Previous labs WBC 7 hemoglobin 11.1 platelets 298 potassium 4.4 creatinine 0.89 Assessment and plan: -Left external iliac common femoral and superficial femoral artery, endarterectomy with patch angioplasty -Peripheral artery disease with claudication Antiplatelet agent and Lipitor -: Obesity BMI 35.1 Weight loss measures and okay with Dr. Patterson -GERD Continue with Protonix -Hyperlipidemia Continue with Crestor -Essential hypertension -Continue with Cardizem, Lopressor -Persistent atrial fibrillation Pradaxa okayed by Dr. Patterson to be resumed Patient doing well. Continue current medications. If discharged to follow-up with PCP. Thank you Dr. Patterson
== END 2020-06-13 14:37 | disposition home health service (06) ==
LOC: UNDOADMIN 08:10 → 2ORMAIN 08:10 → OR 08:10 → EDSTATUS 10:00 → 2ORMAIN 14:23 → 3SCARD 14:23 → 2ORMAIN 16:59 → OR 06-13 14:37 → UNDODISIN 06-13 14:37
PROVIDERS: ATTEND Surgery
DX: I70.212 Atherosclerosis of native arteries of extremities with intermittent claudication, left leg (principal); I08.1 Rheumatic disorders of both mitral and tricuspid valves; I11.0 Hypertensive heart disease with heart failure; I50.32 Chronic diastolic (congestive) heart failure; I48.91 Unspecified atrial fibrillation; D64.9 Anemia, unspecified; L03.90 Cellulitis, unspecified; Z20.822 Contact with and (suspected) exposure to COVID-19; Z95.820 Peripheral vascular angioplasty status with implants and grafts; K21.9 Gastro-esophageal reflux disease without esophagitis; Z89.429 Acquired absence of other toe(s), unspecified side; I69.354 Hemiplegia and hemiparesis following cerebral infarction affecting left non-dominant side; Z86.16 Personal history of COVID-19; L40.9 Psoriasis, unspecified; E78.5 Hyperlipidemia, unspecified; Z82.49 Family history of ischemic heart disease and other diseases of the circulatory system; Z82.5 Family history of asthma and other chronic lower respiratory diseases; Z98.890 Other specified postprocedural states; Z84.1 Family history of disorders of kidney and ureter; Z79.01 Long term (current) use of anticoagulants; Z79.02 Long term (current) use of antithrombotics/antiplatelets; Z79.899 Other long term (current) drug therapy
CPT/HCPCS: 97161; 88304; 88305; 80048; 85027; 88311; 87635; 35372; C1781; J2250; J1644; J1100; J2710; J0690; J2405; J2001; J3010; J1170; J2704; 86850; 86900; 86901